=== PATIENT | female | born 1985 | race Caucasian/White ===

== ENCOUNTER → 2019-09-14 | Outpatient (CLI) | payer OTHER ==
[~2019-09-14] MED LIST: LISD30CA5 PO
--- NOTE | 2019-09-14 13:06 | RAD ---
CT Abdomen and Pelvis without contrast History: Hematuria Technique: Noncontrast CT imaging was performed of the abdomen and pelvis. Multiplanar images are reviewed. Exposure: One or more of the following individualized dose reduction techniques were utilized for this examination: 1. Automated exposure control 2. Adjustment of the mA and/or kV according to patient size 3. Use of iterative reconstruction technique. Comparison: None Findings: There is a 0.3 to 0.4 cm left renal calculus in the renal pelvis. There is no hydronephrosis of either kidney. No ureteral calculus is identified. Accurate evaluation of abdominal visceral organs is limited without intravenous contrast. There is no obvious abnormality of the spleen, liver, or pancreas. There is no adrenal nodularity. Accurate evaluation of bowel is limited without oral contrast. There is no significant free air, free fluid, bowel dilatation. There is retained stool greater of the right colon. Normal caliber appendix is visualized without adjacent inflammatory change. Gallbladder is present, nonspecific contracted appearance. Impression: 1. There is left renal calculus, no hydronephrosis or ureteral calculus. 2. There is retained stool greater of the right colon. Electronically signed by: George Kingsley MD (09/14/2019 1:03 PM) [id number]
== END ==
LOC: CT 12:15
PROVIDERS: ATTEND Registered Nurse
DX: N20.0 Calculus of kidney (principal); K59.09 Other constipation; R31.9 Hematuria, unspecified
CPT/HCPCS: 74176